=== PATIENT | male | born 1990 | race Caucasian/White ===

== ENCOUNTER 2017-10-07 17:44 | Emergency (ER) | payer OTHER ==
[~2017-10-07] VITALS: Ht 172.7 cm; Wt 79.2 kg
[2017-10-07 17:50] VITALS: BP 148/95; PULSE 104; RESP 16; TEMP 98.3; O2SAT 96
[2017-10-07] MEDS ORDERED: PANTOPRAZOLE SOD 40 MG DELAYED RELEASE TAB PO ONE (18:15)
[2017-10-07] MEDS ORDERED: ONDANSETRON ODT 4 MG TAB PO ONE (18:15)
[2017-10-07] MEDS ORDERED: ALUMINUM/MAGNESIUM/SIMETH 30 ML CUP PO ONE (18:15)
[2017-10-07] MEDS ORDERED: ZOFR4TAB3 SL (18:19)
[2017-10-07] MEDS ORDERED: PANT20 PO (18:19)
--- NOTE | 2017-10-07 18:20 | PD ---
HPI Chief Complaint: GI Complaint Time Seen by Provider: 18:00 Travel History International Travel<30 days: No Contact w/Intl Traveler<30days: No Traveled to known affect area: No History of Present Illness HPI 27-year-old male complains of loose stool nausea vomiting and hematemesis. Patient states that he has loose stools for the past 2 days. Patient started having nausea vomiting today and vomited small mild blood in the vomitus today. Patient denies abdominal pain. Patient denies any fever chills. Patient denies any history of GI bleed. Patient denied history of gastritis or peptic ulcer disease. Patient has history of alcohol consumption daily. Patient denies any history of alcohol withdrawal symptoms in the past. Patient states that he takes ibuprofen frequently for knee pain. PFSH Past Medical History Medical History: Denies Significant Hx Past Surgical History Surgical History: No Previous Surgery Social History Alcohol Use: Yes (1-2 daily, 1 today) Tobacco Use: Yes (1 ppd) Substance Use: No Allergies-Medications (Allergen,Severity, Reaction): Coded Allergies: No Known Allergies (Unverified , 10/07/17) Reported Meds & Prescriptions Reported Meds & Active Scripts Active No Active Prescriptions or Reported Medications Review of Systems General / Constitutional: No: Fever Eyes: No: Visual changes HENT: No: Headaches Cardiovascular: No: Chest Pain or Discomfort Respiratory: No: Shortness of Breath Gastrointestinal: Positive: Nausea, Vomiting, Hematemesis, No: Abdominal Pain Genitourinary: No: Dysuria Musculoskeletal: No: Pain Skin: No Rash Neurologic: No: Weakness Psychiatric: No: Depression Endocrine: No: Polydipsia Hematologic/Lymphatic: No: Easy Bruising Physical Exam Narrative GENERAL: Well-nourished, well-developed patient. SKIN: Focused skin assessment warm/dry. HEAD: Normocephalic. EYES: No scleral icterus. No injection or drainage. NECK: Supple, trachea midline. No JVD or lymphadenopathy. CARDIOVASCULAR: Regular rate and rhythm without murmurs, gallops, or rubs. RESPIRATORY: Breath sounds equal bilaterally. No accessory muscle use. GASTROINTESTINAL: Abdomen soft, non-tender, nondistended. MUSCULOSKELETAL: No cyanosis, or edema. BACK: Nontender without obvious deformity. No CVA tenderness. Neurologic exam normal. Data Data Last Documented VS Vital Signs Date Time Temp Pulse Resp B/P (MAP) Pulse Ox O2 Delivery O2 Flow Rate FiO2 10/07/17 17:50 98.3 104 16 148/95 (112) 96 Orders Orders Ondansetron Odt (Zofran Odt) (10/07/17 18:15) Pantoprazole (Protonix) (10/07/17 18:15) Al-Mag Hy-Si 40-40-4 Mg/Ml Liq (Mag-Al P (10/07/17 18:15) MDM Medical Decision Making Medical Screen Exam Complete: Yes Emergency Medical Condition: Yes Differential Diagnosis Differential diagnoses including esophagitis, gastritis, peptic ulcer disease, upper GI bleed. Narrative Course 27-year-old male with 2 days of loose stool and vomited today with small amount of blood in the vomitus. History of alcohol consumption. Protonix 40 mg by mouth. Maalox 30 cc by mouth. Zofran 4 mg ODT. Diagnosis Primary Impression: Gastroenteritis Additional Impression: Hematemesis Qualified Codes: K92.0 - Hematemesis Patient Instructions: General Instructions Additional Instructions: Advised alcohol avoidance. Take medications as directed. Follow-up with personal physician. Return if persistent problem or worse. Med/Other Pt SpecificInfo: Prescription(s) given Scripts Ondansetron Odt (Zofran Odt) 4 Mg Tab 4 MG SL Q6HR Y for Nausea/Vomiting, #12 TAB 0 Refills Prov: Edward Slater MD 10/07/17 Pantoprazole (Protonix) 20 Mg Tab 20 MG PO DAILY for Reflux, #30 TAB 0 Refills Prov: Edward Slater MD 10/07/17 Disposition: 01 DISCHARGE HOME Condition: Stable Edward Slater MD Oct 07, 2017 18:20
== END 2017-10-07 18:48 | disposition home or self-care (01) ==
LOC: PHED 17:44
DX: K52.9 Noninfective gastroenteritis and colitis, unspecified (principal); K92.0 Hematemesis; F17.200 Nicotine dependence, unspecified, uncomplicated; Z87.39 Personal history of other diseases of the musculoskeletal system and connective tissue; Z72.89 Other problems related to lifestyle
CPT/HCPCS: 99284